=== PATIENT | male | born 1960 | race Two or more races ===

== ENCOUNTER 2016-07-02 10:43 | Emergency (ER) | payer MEDICAID ==
[~2016-07-02] VITALS: Wt 65.0 kg
[~2016-07-02 10:43] MED LIST: AZIT500T5 PO; IBUP-1542 PO
[2016-07-02] MEDS ORDERED: KETOROLAC 60 MG INJ IM STA (11:41)
--- NOTE | 2016-07-02 12:38 | RADRPT ---
PROCEDURE: XR Hand. CLINICAL INDICATION: injury with shoulder pain TECHNIQUE: AP oblique and lateral views of the right hand were obtained. COMPARISON: No prior studies are available for comparison. FINDINGS: There is normal mineralization. No acute fracture or dislocation is seen. There are no significant degenerative changes. There is no significant soft tissue swelling. IMPRESSION: No acute bony abnormality .Amrik Hawk MD, Date Time Electronically viewed and signed by .Amrik Hawk MD, on 07/02/2016 12:38 .Laly/
--- NOTE | 2016-07-02 12:39 | RADRPT ---
PROCEDURE: XR Elbow. CLINICAL INDICATION: FOOSH/shoulder pain TECHNIQUE: AP, lateral and oblique views of the right elbow performed. COMPARISON: None. FINDINGS: There is normal mineralization and alignment. No fracture or osseous lesion is identified. There are normal joints without evidence of arthritis or effusion. The soft tissues are unremarkable. IMPRESSION: Unremarkable examination. .Amrik Hawk MD, MD Date Time Electronically viewed and signed by .Amrik Hawk MD, on 07/02/2016 12:38 .Laly/
--- NOTE | 2016-07-02 12:40 | RADRPT ---
PROCEDURE: XR Wrist. CLINICAL INDICATION: Pain. TECHNIQUE: AP, lateral and oblique views of the right wrist were performed. COMPARISON: No prior studies are available for comparison. FINDINGS: No evidence of fracture, dislocation, or subluxation is seen. The bones appear well mineralized. The joint spaces are well preserved. The soft tissues appear intact. IMPRESSION: Unremarkable exam of the right wrist. RPTAT: QQ. .Amrik Hawk MD, MD Date Time Electronically viewed and signed by .Amrik Hawk MD, on 07/02/2016 12:40 .M/
--- NOTE | 2016-07-02 12:40 | RADRPT ---
PROCEDURE: Right shoulder series. CLINICAL INDICATION: Pain. TECHNIQUE: AP views of the shoulder were performed with internal and external rotation, as well as a transscapular Y view. COMPARISON: None. FINDINGS: No acute fracture or dislocation. The glenohumeral and acromioclavicular joint spaces are intact. N o findings of calcific tendonitis are present. IMPRESSION: Negative examination. RPTAT: QQ .Amrik Hawk MD, MD Date Time Electronically viewed and signed by .Amrik Hawk MD, on 07/02/2016 12:39 .M/
[2016-07-02] MEDS ORDERED: HYDR-906 PO (12:47)
--- NOTE | 2016-07-02 12:47 | ERD ---
ER Documentation Chief Complaint Date/Time DATE: 07/02/16 TIME: 12:46 Chief Complaint right hand pain from a fall yesterday no obvious deformty HPI This patient is a 56-year-old male with no significant medical history presenting to the emergency department for right hand, right wrist and right shoulder pain after fall on outstretched hand yesterday while he was leaving work. The patient reports 7 out of 10 on the pain scale and states it is constant. He has not been able to sleep secondary to pain. He has taken no medications at home for pain relief. Patient denies any head injury or loss of consciousness. There are no other symptoms to report at this time. ROS All systems reviewed and are negative except as per history of present illness. Medications Home Meds Active Scripts Naproxen* (Naprosyn*) 500 Mg Tablet, 500 MG PO BID Y for PAIN AND/OR INFLAMMATION, #30 TAB Prov:ALEJA TARIQ PA-C 07/02/16 Hydrocodone/Acetaminophen ([place] 5-325 Tablet) 1 Each Tablet, 1 TAB PO Q6H Y for PAIN, #7 TAB Prov:ALEJA TARIQ PA-C 07/02/16 Ibuprofen* (Motrin*) 600 Mg Tab, 600 MG PO Q8 for 10 Days, #30 TAB 0 Refills Prov:JESSICA MONET PA-C 04/29/16 Azithromycin* (Azithromycin*) 500 Mg Tablet, 500 MG PO DAILY for 5 Days, TAB Prov:MARYSE BRADFORD 03/04/16 Ibuprofen* (Ibuprofen*) 600 Mg Tablet, 600 MG PO Q8, #30 TAB Prov:MARYSE BRADFORD 03/04/16 Allergies Allergies: Coded Allergies: No Known Allergy (Unverified , 03/04/16) PMhx/Soc History of Surgery: No Anesthesia Reaction: No Hx Neurological Disorder: No Hx Respiratory Disorders: No Hx Cardiac Disorders: No Hx Psychiatric Problems: No Hx Miscellaneous Medical Probl: No Hx Alcohol Use: No Hx Substance Use: No Hx Tobacco Use: No FmHx Noncontributory for chief complain Physical Exam Vitals Vital Signs Date Time Temp Pulse Resp B/P Pulse Ox O2 Delivery O2 Flow Rate FiO2 07/02/16 10:56 98.4 74 20 18/64 99 Physical Exam INITIAL VITAL SIGNS: Reviewed by me. GENERAL: Alert and interactive. No acute distress. HEAD: Head is normocephalic and atraumatic. EYES: EOMI. No scleral icterus. No conjunctival injection. ENT: Moist mucosa. NECK: Supple. Full range of motion. RESPIRATORY: Normal respiratory effort. Clear breath sounds bilaterally. No wheezing, rales, or rhonchi. CV: Regular rate and rhythm. Normal S1 S2. No S3 or S4. No murmurs. ABDOMEN: Soft, non-distended, non-tender. No guarding. No rebound. No masses. EXTREMITIES: No deformity. There is mild soft tissue swelling to the right hand but no erythema or warmth. There is no lymphatic streaking. There is slight limited range of motion secondary to pain of the right wrist. SKIN: Warm and dry. NEUROLOGIC: Alert and oriented x 4. Speech is normal. Moves all extremities equally. No motor or sensory deficits noted. Results 24 hrs Current Medications Medications (Trade) Dose Ordered Sig/Clint Route PRN Reason Start Time Stop Time Status Last Admin Dose Admin Ketorolac Tromethamine (Toradol) 60 mg ONCE STAT IM 07/02/16 11:41 07/02/16 11:46 DC 07/02/16 12:42 Procedures/MDM 36-year-old male presents secondary to complaints of right hand and right wrist and right shoulder pain after fall on outstretched right hand yesterday. Radiology: PROCEDURE: XR Elbow. CLINICAL INDICATION: FOOSH/shoulder pain TECHNIQUE: AP, lateral and oblique views of the right elbow performed. COMPARISON: None. FINDINGS: There is normal mineralization and alignment. No fracture or osseous lesion is identified. There are normal joints without evidence of arthritis or effusion. The soft tissues are unremarkable. IMPRESSION: Unremarkable examination. PROCEDURE: XR Forearm. CLINICAL INDICATION: Pain TECHNIQUE: AP and lateral views of the right forearm were obtained. COMPARISON: No prior studies are available for comparison. FINDINGS: There is normal mineralization and alignment. There is a mild cortical irregularity along the distal radius which is not visualized on the wrist radiographs from earlier the same day. The remainder of the osseous structures demonstrate no fracture or dislocation. There are normal joints without evidence of arthritis or effusion. The soft tissues are unremarkable. IMPRESSION: Mild cortical irregularity along the distal radius which is not visualized on the wrist radiographs from earlier the same day. Findings may be retail account representative of a subtle nondisplaced fracture although no overlying soft tissue swelling is identified. Clinical correlation for point tenderness. Further imaging with CT may be of additional benefit if there is further clinical concern. PROCEDURE: XR Hand. CLINICAL INDICATION: injury with shoulder pain TECHNIQUE: AP oblique and lateral views of the right hand were obtained. COMPARISON: No prior studies are available for comparison. FINDINGS: There is normal mineralization. No acute fracture or dislocation is seen. There are no significant degenerative changes. There is no significant soft tissue swelling. IMPRESSION: No acute bony abnormality PROCEDURE: Right shoulder series. CLINICAL INDICATION: Pain. TECHNIQUE: AP views of the shoulder were performed with internal and external rotation, as well as a transscapular Y view. COMPARISON: None. FINDINGS: No acute fracture or dislocation. The glenohumeral and acromioclavicular joint spaces are intact. No findings of calcific tendonitis are present. IMPRESSION: Negative examination. PROCEDURE: XR Wrist. CLINICAL INDICATION: Pain. TECHNIQUE: AP, lateral and oblique views of the right wrist were performed. COMPARISON: No prior studies are available for comparison. FINDINGS: No evidence of fracture, dislocation, or subluxation is seen. The bones appear well mineralized. The joint spaces are well preserved. The soft tissues appear intact. IMPRESSION: Unremarkable exam of the right wrist. On closer review of the forearm x-ray there was an area that the radiologist stated as "a mild cortical irregularity along the distal radius which is not visualized on the wrist radiographs from earlier the same day." After reviewing this result I contacted the patient to alert him and advised him to come back to the department immediately to be put in a wrist splint. Patient agreed and stated he would do so on 07-03-2016. This information was relayed to the charge nurse who stated he would put this information in the patient's file so that he may return for wrist splint tomorrow. The patient was also given orthopedics follow-up information. The patient understood all the information given and his questions and concerns were addressed. Departure Diagnosis: Primary Impression: Injury of hand Condition: Stable Referrals: [facility] Additional Instructions: Follow-up with your primary care physician within 1 week. Return to the emergency department immediately should you have any new or worsening symptoms, uncontrolled fevers, or other unexplained symptoms. Take all medications as directed. ALEJA TARIQ PA-C Jul 02, 2016 12:47
[2016-07-02] MEDS ORDERED: NAPR-260 PO (12:48)
--- NOTE | 2016-07-02 12:48 | RADRPT ---
PROCEDURE: XR Forearm. CLINICAL INDICATION: Pain TECHNIQUE: AP and lateral views of the right forearm were obtained. COMPARISON: No prior studies are available for comparison. FINDINGS: There is normal mineralization and alignment. There is a mild cortical irregularity along the distal radius which is not visualized on the wrist radiographs from earlier the same day. The remainder o f the osseous structures demonstrate no fracture or dislocation. There are normal joints without tonia dence of arthritis or effusion. The soft tissues are unremarkable. IMPRESSION: Mild cortical irregularity along the distal radius which is not visualized on the wrist radiographs from earlier the same day. Findings may be sales service representative of a subtle nondisplaced fracture although no overlying soft tissue swelling is identified. Clinical correlation for point tenderness. Furthe r imaging with CT may be of additional benefit if there is further clinical concern. RPTAT: QQ .Amrik Hawk MD, Date Time Electronically viewed and signed by .Amrik Hawk MD, MD on 07/02/2016 12:47 .M/
== END 2016-07-02 13:23 | disposition home or self-care (01) ==
LOC: FTE 10:43
DX: S69.91XA Unspecified injury of right wrist, hand and finger(s), initial encounter (principal); W18.39XA Other fall on same level, initial encounter; Y92.89 Other specified places as the place of occurrence of the external cause
CPT/HCPCS: 73030; 73080; 73090; 73110; 73130; 96372; J1885; Z7502

== ENCOUNTER 2016-07-03 11:10 | Emergency (ER) | payer MEDICAID ==
[~2016-07-03] VITALS: Ht 165.1 cm; Wt 64.5 kg
[~2016-07-03 11:10] MED LIST changes: +HYDR-906 PO; +NAPR-260 PO
[2016-07-03 11:45] VITALS: Ht 165.1 cm; Wt 64.5 kg
--- NOTE | 2016-07-03 13:36 | ERD ---
ER Documentation Chief Complaint Date/Time DATE: 07/03/16 TIME: 13:25 Chief Complaint RIGHT HAND PAIN 12/11.Pt WAS CALLED TO COME BACK FOR FRACTURED HAND HPI 56 y/o male presents to ED for "I was called by one of the emergency room providers yesterday to come today for a splint placement to my right wrist fracture." Was here yesterday for a right upper extremity injury and diagnostic imagings was done. Denies headache, loss of consciousness, dizziness, blurry vision, changes in vision, photophobia, facial pain, ear pain, throat pain, difficulty swallowing, neck pain, shoulder pain, chest pain, cough, hemoptysis, abdominal pain, back pain, loss of appetite, nausea, vomiting, hematochezia, diarrhea, constipation, urinary symptoms, bladder and bowel incontinences, extremity weakness, numbness or tingling sensation, difficulty walking, recent travel, recent exposure to illness, recent antibiotic use in the last 3 months, fever, chills. Allergy: NKA PMH: Denies Medications: Denies Surgery: Denies Family history: Denies Primary Social History: Works at [employer]. Denies smoking, use of alcohol, use of illegal drugs. ROS All systems reviewed and are negative except as per history of present illness. Medications Home Meds Active Scripts Naproxen* (Naprosyn*) 500 Mg Tablet, 500 MG PO BID Y for PAIN AND/OR INFLAMMATION, #30 TAB Prov:ALEJA TARIQ PA-C 07/02/16 Hydrocodone/Acetaminophen ([place] 5-325 Tablet) 1 Each Tablet, 1 TAB PO Q6H Y for PAIN, #7 TAB Prov:ALEJA TARIQ PA-C 07/02/16 Ibuprofen* (Motrin*) 600 Mg Tab, 600 MG PO Q8 for 10 Days, #30 TAB 0 Refills Prov:JESSICA MONET PA-C 04/29/16 Azithromycin* (Azithromycin*) 500 Mg Tablet, 500 MG PO DAILY for 5 Days, TAB Prov:MARYSE BRADFORD 03/04/16 Ibuprofen* (Ibuprofen*) 600 Mg Tablet, 600 MG PO Q8, #30 TAB Prov:MARYSE BRADFORD 03/04/16 Allergies Allergies: Coded Allergies: No Known Allergy (Unverified , 03/04/16) PMhx/Soc History of Surgery: No Anesthesia Reaction: No Hx Neurological Disorder: No Hx Respiratory Disorders: No Hx Cardiac Disorders: No Hx Psychiatric Problems: No Hx Miscellaneous Medical Probl: No Hx Alcohol Use: No Hx Substance Use: No Hx Tobacco Use: No Physical Exam Vitals Vital Signs Date Time Temp Pulse Resp B/P Pulse Ox O2 Delivery O2 Flow Rate FiO2 07/03/16 15:04 98.5 80 18 110/63 98 Room Air 07/03/16 11:45 98.5 78 18 116/63 98 Physical Exam CONSTITUTIONAL: Well-appearing; well-nourished; in no apparent distress. HEAD: Normocephalic; atraumatic. EYES: Conjunctiva clear, sclera non-icteric, EOM intact. PERRL Ears: Hearing intact. EACs clear, TMs non-bulging, non-inflamed, translucent & mobile, ossicles normal appearance, No obstructions, no erythema, no discharges Nose: No obstructions. No polyps. No external lesions. Mucosa non-inflamed. No external lesions, septum and turbinates normal. No rhinorrhea. No discharges. Frontal sinus is non-tender to palpation. Maxillary sinus is non-tender to palpation. MOUTH: Moist mucous membranes, no lesion, no obstructions, no vesicles, no thrush, patent airway Throat: Uvula in midline. Right tonsil is +1 with no erythema, no exudate. Left tonsil is +1 with no erythema, no exudate. Tolerating secretions well. Good gag reflex. Patent airway. Neck: Supple, without lesions, bruits, or adenopathy. No mass. Thyroid non- enlarged and non-tender to palpation. CHEST: Symmetrical chest. Respirations even and not labored. No retractions noted. CARDIOVASCULAR: Normal S1, S2. RRR. No murmurs, gallops. RESPIRATORY: Normal chest excursion with respiration; breath sounds clear and equal bilaterally; no wheezes, rhonchi, or rales. Breathing even and unlabored. Speaking in clear, full, and complete sentences w/ ease. ABDOMEN: Normal bowel sounds normal. Soft, round, non-distended, non-guarding, no tenderness, no rebound, no organomegaly, no masses, no pulsating abdominal mass. No hernia. No peritoneal signs. : No CVA tenderness. BACK: Symmetrical shoulder. Spine is midline without deformity, tenderness. No evidence of trauma or deformity. PELVIS: Stable pelvis. No evidence of trauma or deformity. MUSCULOSKELETAL: Normal gait and station. No misalignment, asymmetry, crepitation, defects, tenderness, masses, effusions, decreased range of motion, instability, atrophy or abnormal strength or tone in the head, neck, spine, ribs , pelvis or extremities. No calf tenderness. Right arm/hand: Mild tenderness with mild limited range of motion to right wrist. Has good radial pulse. Has good and full function of right metacarpals, proximal/distal interphalangeal joints with full flexion/extension (5/5 in score ). Circulation and sensation is intact. No neurovascular deficits. Right elbow is unremarkable. Right shoulder is unremarkable. NEUROVASCULAR: Distal pulses are present. Pedal pulse are present, equal, and normal. Capillary refills are < 2 seconds. NEUROLOGIC: Alert and oriented x4. Speaks full and clear sentences. Cranial Nerves II-XII normal. Sensation to pain, touch, and proprioception normal. Grossly unremarkable. No neurologic deficits. Romberg test is negative. PSYCHOLOGICAL: The patients mood and manner are appropriate. No hallucinations , delusions. Not SI. Not HI. Has the capacity to decide for self SKIN: Normal for age and ethnicity; warm; dry; good turgor; no apparent lesions or exudates. No rashes, hives, discoloration. Intact. Procedures/MDM Examination. Disease process, medical treatment was explained to the patient and family member. They verbalized understanding and agreed with the diagnostic tests, medical treatment, and follow-up care. Radiology: Reviewed Treatment: Volar splint. No neurovascular deficits prior to and after the application of splint. Re-evaluation: No neurovascular deficits. Consultation: None Differential diagnosis: Fracture versus contusion versus sprain. Medical decision makin56 y/o male presents to ED for "I was called by one of the emergency room providers yesterday to come today for a splint placement to my right wrist fracture." Was here yesterday for a right upper extremity injury and diagnostic imagings was done. Patient's complaint, my physical findings, diagnostic test results are consistent with my final diagnosis of non- displaced fracture of right distal radius. Medications prescribed are the following: Continue her prescribed medications yesterday. Patient and family member are made aware of the side effects and adverse reactions of the medications prescribed. Instructed on when to seek emergent and medical attention in case allergic/anaphylactic reactions or severe side effects and or adverse reactions to medications. Patient and family member verbalized understanding. Patient instructed Instructed to follow-up with his PCP in 24-48 hours. PCP to refer patient to an revenue cycle specialist (Dr. Cruz). Contact information of specialist was given to patient. Instructed to Call 911 for chest pain, shortness of breath. Advised to come back here in ED as soon as possible for severity of symptoms which includes but not limited to: any new symptoms; shortness of breath/difficulty of breathing; cardiovascular changes; severe gastrointestinal symptoms; signs and symptoms of bleeding and or infection; signs of compartment syndrome/neurovascular changes; neurological changes/deficits. Patient and family member verbalized understanding. Upon discharge, patient is alert and oriented x 4, speaks full and clear sentences, denies pain, has no neurological deficits, has no neurovascular deficits, difficulty of breathing. Breathing even and unlabored. Lung sounds are clear to auscultation. Not in distress. Appears comfortable. Ambulatory with steady gait. Appears satisfied with care provided here in ED. Departure Diagnosis: Primary Impression: Fracture Condition: Good Additional Instructions: Follow-up with PCP in 24-48 hours. PCP to refer patient to an revenue cycle specialist. ADELA DELEON Jul 03, 2016 13:36
[2016-07-03 15:04] VITALS: BP 110/63; PULSE 80; RESP 18; TEMP 98.5
== END 2016-07-03 15:05 | disposition home or self-care (01) ==
LOC: FTE 11:10
DX: S52.591D Other fractures of lower end of right radius, subsequent encounter for closed fracture with routine healing (principal); X58.XXXD Exposure to other specified factors, subsequent encounter

== ENCOUNTER 2016-10-30 09:59 | Emergency (ER) | payer MEDICAID ==
[~2016-10-30] VITALS: Ht 152.4 cm; Wt 62.5 kg
[2016-10-30 10:02] VITALS: Ht 152.4 cm; Wt 62.5 kg
[2016-10-30] MEDS ORDERED: KETOROLAC 30 MG INJ IM STA (10:21)
--- NOTE | 2016-10-30 10:55 | RADRPT ---
PROCEDURE: XR right shoulder. CLINICAL INDICATION: Pain TECHNIQUE: AP and lateral views of the right shoulder were performed. COMPARISON: 07/02/2016 FINDINGS: There are mild degenerative changes involving the acromioclavicular joint with mild joint space narr owing and subchondral sclerosis. There is normal osseous mineralization and alignment. No fracture or osseous lesion is identified. The soft tissues are unremarkable. IMPRESSION: Mild degenerative changes of the acromioclavicular joint. RPTAT: AA .Isabella Myers MD, MD Date Time Electronically viewed and signed by .Isabella Myers MD, on 10/30/2016 10:54 .J/
--- NOTE | 2016-10-30 11:07 | ERD ---
ER Documentation Chief Complaint Date/Time DATE: 10/30/16 Chief Complaint Right shoulder pain HPI The patient is a 56-year-old male who presents to the Emergency Department with complaint of right shoulder pain for the past week. The patient reports that approximately one week ago, while walking on the street, he had a mechanical trip and fall and fell directly onto his outstretched right upper extremity. Since, he has been experiencing pain to the right shoulder joint. The pain is worse with movement, particularly overhead activities, and mildly improved at rest. It is aching in nature, and constant, localized to the right shoulder joint and deltoid region. He rates his current pain as 10/10, but has not yet taken any medication today for pain relief. He denies any numbness, paresthesias or weakness of the distal extremity. Denies restricted range of motion. Since the fall, he has not yet followed up with her primary medical provider, and find any x-ray imaging performed. Therefore, even persistent pain he decided to present to the Emergency Department for further evaluation. ROS All systems reviewed and are negative except as per history of present illness. Medications Home Meds Active Scripts Naproxen* (Naprosyn*) 500 Mg Tablet, 500 MG PO BID Y for PAIN AND/OR INFLAMMATION, #30 TAB Prov:NANI PENA PA-C 10/30/16 Naproxen* (Naprosyn*) 500 Mg Tablet, 500 MG PO BID Y for PAIN AND/OR INFLAMMATION, #30 TAB Prov:ALEJA TARIQ PA-C 07/02/16 Hydrocodone/Acetaminophen ([place] 5-325 Tablet) 1 Each Tablet, 1 TAB PO Q6H Y for PAIN, #7 TAB Prov:ALEJA TARIQ PA-C 07/02/16 Ibuprofen* (Motrin*) 600 Mg Tab, 600 MG PO Q8 for 10 Days, #30 TAB 0 Refills Prov:JESSICA MONET PA-C 04/29/16 Azithromycin* (Azithromycin*) 500 Mg Tablet, 500 MG PO DAILY for 5 Days, TAB Prov:MARYSE BRADFORD 03/04/16 Ibuprofen* (Ibuprofen*) 600 Mg Tablet, 600 MG PO Q8, #30 TAB Prov:MARYSE BRADFORD 03/04/16 Allergies Allergies: Coded Allergies: No Known Allergy (Unverified , 03/04/16) PMhx/Soc History of Surgery: No Anesthesia Reaction: No Hx Neurological Disorder: No Hx Respiratory Disorders: No Hx Cardiac Disorders: No Hx Psychiatric Problems: No Hx Miscellaneous Medical Probl: No Hx Alcohol Use: No Hx Substance Use: No Hx Tobacco Use: No Physical Exam Vitals Vital Signs Date Time Temp Pulse Resp B/P Pulse Ox O2 Delivery O2 Flow Rate FiO2 10/30/16 10:02 98.3 76 20 99/54 99 Physical Exam Const: Well-developed, well-nourished, in no acute distress. Head: Normocephalic. Atraumatic. Eyes: Normal Conjunctiva. ENT: Normal External Ears, Nose and Mouth. Neck: Supple. Full range of motion. Resp: Clear to auscultation bilaterally Cardio: Regular rate and rhythm, no murmurs Skin: No petechiae or rashes Back: No midline or flank tenderness Ext: Inspection of the right shoulder reveals no deformity and fairly developed musculature without any atrophy. No sagging of the shoulder. No obvious deformity. Palpation of the shoulder reveals mild tenderness upon palpation of the bicipital groove. Active range of motion shows moderate pain with range of motion that appears to be worse with extension and internal rotation against resistance. Passive range of motion shows mild pain. Positive Neer sign. Positive Anaya-Foster test. Negative drop arm test. Negative lift off test. Examination of the biceps reveals no pain with resisted flexion or pronation. Negative Yergason sign. Negative anterior apprehension test. Negative sulcus sign. Axillary, radial, median and ulnar nerve distribution grossly intact, both motor and sensory. Normal skin perfusion. Other joints nontender. No joint effusion. Full range of motion of the upper and lower extremities. Muscle tone is normal. No focal swelling or erythema. No clubbing, cyanosis or edema. Compartments are soft. No ecchymosis. No crepitus. No step offs. Normal strength. Distal pulses are palpable, 2+ bilaterally. Capillary refill is less than 2 seconds. Neur: Awake and alert Psych: Normal Mood and Affect Results 24 hrs Current Medications Medications (Trade) Dose Ordered Sig/Clint Route PRN Reason Start Time Stop Time Status Last Admin Dose Admin Ketorolac Tromethamine (Toradol) 30 mg ONCE STAT IM 10/30/16 10:21 10/30/16 10:22 DC 10/30/16 10:29 Procedures/MDM DIAGNOSTIC TESTS AND INTERPRETATION: PROCEDURE: XR right shoulder. CLINICAL INDICATION: Pain TECHNIQUE: AP and lateral views of the right shoulder were performed. COMPARISON: 07/02/2016 FINDINGS: There are mild degenerative changes involving the acromioclavicular joint with mild joint space narrowing and subchondral sclerosis. There is normal osseous mineralization and alignment. No fracture or osseous lesion is identified. The soft tissues are unremarkable. IMPRESSION:Mild degenerative changes of the acromioclavicular joint. .Isabella Myers MD, MD Date Time Electronically viewed and signed by .Isabella Myers MD, on 10/30/2016 10:54 SLING APPLICATION: INDICATION: Internal derangement of the right shoulder. LOCATION: Right upper extremity. NEUROVASCULAR EXAM: The patients extremity was neurovascularly intact prior to and status post sling placement. MEDICAL DECISION MAKING: This is a 56-year-old male presenting to the Emergency Department with right shoulder pain s/p mechanical fall onto outstretched right upper extremity one week ago. His vital signs were stable, and he showed no evidence of toxicity. There are no imaging findings to suggest fracture, dislocation or subluxation. Patient is breathing normally on room air with no shortness of breath, no tachypnea and a normal O2 saturation. I do not suspect pneumothorax. No pain out of proportion to examination, no fevers, no constitutional symptoms, no crepitus, no skip lesions or rash, no erythema or restricted range of motion to suggest necrotizing fasciitis, necrotizing myositis, avascular necrosis, septic arthritis. Range of motion appears to be intact, though with positive Neers and Anaya-Foster test. Negative drop arm test. Suspect rotator cuff impingement, likely internal derangement of the right shoulder. Patient will likely benefit from outpatient MRI imaging. Distal extremity is neurovascularly intact, with 2+ pulses that are equal bilaterally and capillary refill less than 2 seconds. No evidence of neurovascular compromise. After rest and administration of Toradol, the patient reports no new complaints and decreased pain. Upon my review and interpretation of the patient's presentation and overall ER course, I believe that the patient's symptoms are most consistent with right shoulder pain, likely secondary to internal derangement of the right shoulder/ right shoulder impingement syndrome. The patient is in stable condition and therefore can be discharged home with prescription for Ibuprofen and given strict return precautions for signs of deteriorating or worsening condition. The importance of icing, elevating, resting and working on range of motion was discussed with the patient. The patient is instructed to follow up with a primary care provider and/or orthopedic physician assistant within 2-3 days for re- evaluation and further management or return to the ER sooner for any worsening symptoms. I shared my medical decision making, plan and diagnostic imaging results with the patient and he verbally understands and agrees with the plan for further observation and care as an outpatient. At the time of discharge, all questions were answered. Departure Diagnosis: Primary Impression: Impingement syndrome of right shoulder Additional Impressions: Internal derangement of right shoulder Right shoulder pain Chronicity: acute Qualified Code: M25.511 - Acute pain of right shoulder Condition: Stable Patient Instructions: Shoulder Impingement Syndrome, Shoulder Pain (Uncertain Cause), What Is Impingement Syndrome? Referrals: [facility] Additional Instructions: Call your primary care doctor TOMORROW for an appointment during the next 2-3 days.See the doctor sooner or return here if your condition worsens before your appointment time. NANI PENA PA-C October 30, 2016 11:07
[2016-10-30] MEDS ORDERED: NAPR-260 PO (11:08)
== END 2016-10-30 11:32 | disposition home or self-care (01) ==
LOC: FTE 09:59
DX: M75.41 Impingement syndrome of right shoulder (principal); M24.111 Other articular cartilage disorders, right shoulder
CPT/HCPCS: 73030; 96372; J1885; Z7502

== ENCOUNTER 2017-02-03 11:44 | Emergency (ER) | payer SELFPAY ==
[~2017-02-03] VITALS: Ht 157.5 cm; Wt 62.5 kg
[2017-02-03 12:19] VITALS: Ht 157.5 cm; Wt 62.5 kg
[2017-02-03] MEDS ORDERED: KETOROLAC 60 MG INJ IM STA (13:44)
--- NOTE | 2017-02-03 15:02 | RADRPT ---
PROCEDURE: XR Femur. CLINICAL INDICATION: Right lower extremity pain TECHNIQUE: AP and lateral views of the right femur were obtained. COMPARISON: No prior studies are available for comparison. FINDINGS: There is normal mineralization and alignment. No fracture or osseous lesion is identified. There are normal joints without evidence of arthritis or effusion. The soft tissues are unremarkable. IMPRESSION: 1. No acute osseous abnormality. RPTAT: QQ .Evaristo Gomez MD, MD Date Time Electronically viewed and signed by .Evaristo Gomez MD, on 02/03/2017 15:02 .d/
--- NOTE | 2017-02-03 15:03 | RADRPT ---
PROCEDURE: XR Ankle. CLINICAL INDICATION: Lower extremity pain TECHNIQUE: Three views of the right ankle are available for review COMPARISON: None available FINDINGS: The osseous structures, articular spaces, and surrounding soft tissues of the right ankle are intact . No acute fracture or dislocation is seen. No radiopaque foreign body is identified. IMPRESSION: 1. No acute osseous abnormality. RPTAT: QQ .Evaristo Gomez MD, MD Date Time Electronically viewed and signed by .Evaristo Gomez MD, on 02/03/2017 15:03 .d/
--- NOTE | 2017-02-03 15:03 | RADRPT ---
PROCEDURE: US DVT. CLINICAL INDICATION: Right lower extremity pain and swelling. TECHNIQUE: Multiple longitudinal and transverse images of the right lower extremity veins were obt ained with kline scale and color Doppler imaging. 2D grayscale measurements with compression, color Doppler flow, and augmentation was performed. The calf veins were interrogated as well. COMPARISON: No prior studies are available for comparison. FINDINGS: The right common femoral, superficial femoral and popliteal veins are normally compressible througho ut. Color flow demonstrates normal filling of the vessel. Normal waveforms are visualized and ther e is normal response to augmentation. The calf veins are visualized and are equally unremarkable. IMPRESSION: 1. No evidence of a deep vein thrombosis involving the right lower extremity. RPTAT: QQ .Evaristo Gomez MD, MD Date Time Electronically viewed and signed by .Evaristo Gomez MD, MD on 02/03/2017 15:03 .d/
--- NOTE | 2017-02-03 15:05 | RADRPT ---
PROCEDURE: XR Knee. CLINICAL INDICATION: Knee pain TECHNIQUE: Three views of the right knee are available for review. COMPARISON: None available FINDINGS: The medial and lateral femorotibial compartments are preserved, as is the patellofemoral compartment . There is no acute osseous abnormality, marginal erosion or evidence of fracture. There are well-co rticated fragment at the lateral margin of the tibia, likely sequelae of remote injury. A race join t effusion is seen. IMPRESSION: 1. No acute osseous abnormality. 2. Trace joint effusion. RPTAT: QQ .Evaristo Gomez MD, MD Date Time Electronically viewed and signed by .Evaristo Gomez MD, MD on 02/03/2017 15:04 .d/
[2017-02-03] MEDS ORDERED: IBUP-1542 PO (15:16)
[2017-02-03 15:26] VITALS: BP 128/76; PULSE 76; RESP 19; TEMP 98.2
--- NOTE | 2017-02-03 15:29 | ERD ---
ER Documentation Chief Complaint Date/Time DATE: 02/03/17 TIME: 15:21 Chief Complaint BILAT LEG PAIN X 4 DAYS. AMBULATES WITH MINIMAL DIFFICULTY. NO TRAUMA HPI This is a 56-year-old male presents to the ER with right knee pain that radiates behind his knee and up his femur. Patient also complaining of right ankle pain. He is additionally complaining of right-sided back pain. Patient denies any trauma to the back or leg. He states that his pain is sharp and intermittent. Patient took Tylenol and it helped him. He also got a massage from his daughter and this helped him too. Patient has not had any fevers or chills. He is also complaining of generalized headache and watery eyes. Patient states that his left leg hurts as well, however the right is worse. ROS 12 point review of systems was done, all negative except per HPI. Medications Home Meds Active Scripts Ibuprofen* (Motrin*) 600 Mg Tab, 600 MG PO Q6, #30 TAB Prov:JODY FRANCO 02/03/17 Naproxen* (Naprosyn*) 500 Mg Tablet, 500 MG PO BID Y for PAIN AND/OR INFLAMMATION, #30 TAB Prov:NANI PENA PA-C 10/30/16 Naproxen* (Naprosyn*) 500 Mg Tablet, 500 MG PO BID Y for PAIN AND/OR INFLAMMATION, #30 TAB Prov:ALEJA TARIQ PA-C 07/02/16 Hydrocodone/Acetaminophen ([place] 5-325 Tablet) 1 Each Tablet, 1 TAB PO Q6H Y for PAIN, #7 TAB Prov:ALEJA TARIQ PA-C 07/02/16 Ibuprofen* (Motrin*) 600 Mg Tab, 600 MG PO Q8 for 10 Days, #30 TAB 0 Refills Prov:JESSICA MONET PA-C 04/29/16 Azithromycin* (Azithromycin*) 500 Mg Tablet, 500 MG PO DAILY for 5 Days, TAB Prov:MARYSE BRADFORD 03/04/16 Ibuprofen* (Ibuprofen*) 600 Mg Tablet, 600 MG PO Q8, #30 TAB Prov:MARYSE BRADFORD 03/04/16 Allergies Allergies: Coded Allergies: No Known Allergy (Unverified , 02/03/17) PMhx/Soc History of Surgery: No Anesthesia Reaction: No Hx Neurological Disorder: No Hx Respiratory Disorders: No Hx Cardiac Disorders: No Hx Psychiatric Problems: No Hx Miscellaneous Medical Probl: No Hx Alcohol Use: No Hx Substance Use: No Hx Tobacco Use: No Smoking Status: Never smoker Physical Exam Vitals Vital Signs Date Time Temp Pulse Resp B/P Pulse Ox O2 Delivery O2 Flow Rate FiO2 02/03/17 12:19 98.4 72 19 123/70 100 Physical Exam GENERAL: The patient is well developed and appropriate for usual state of health , in no apparent distress. HEENT: Atraumatic. Conjunctivae are pink. Pupils equal, round, and reactive to light. Extraocular muscles are grossly intact and not painful CHEST: Clear to auscultation bilaterally. There are no rales, wheezes or rhonchi. HEART: Regular rate and rhythm. No murmurs, clicks, rubs or gallops. ABDOMEN: Soft, nontender and nondistended. BACK: No midline or flank tenderness. Patient is tender to palpation to the right paraspinal muscles. EXTREMITIES: Right hip: Patient has full and nonpainful range of motion of the right hip and is not tender to palpation. Patient is tender along the femur. Right knee: Patient has painful knee extension and flexion there is a slight joint effusion. Negative anterior drawer negative posterior drawer negative Aldo test. There is no erythema or warmth to the knee. Patient is nontender to palpation along the tibia or fibula. He has painful ankle range of motion. He is not tender to palpation to the lateral or medial malleolus. No foot pain. Left hip: Tender to palpation, he is nontender to palpation along femur. Left knee: Patient has full and nonpainful range of motion of the left knee and there is no tenderness to palpation. He does have any tenderness to palpation to the left tibia-fibula and has full range of motion of the left ankle with no pain. +2 pulses bilaterally normal capillary refill bilaterally. NEURO: Alert and oriented. Cranial nerves II through XII are intact. Motor strength in all 4 extremities with 5/5 strength. Sensation grossly intact. Normal speech and gait. SKIN: There is no apparent rash or petechia. The skin is warm and dry. Results 24 hrs Current Medications Medications (Trade) Dose Ordered Sig/Clint Route PRN Reason Start Time Stop Time Status Last Admin Dose Admin Ketorolac Tromethamine (Toradol) 60 mg ONCE STAT IM 02/03/17 13:44 02/03/17 13:46 DC 02/03/17 13:55 Procedures/MDM This is a 56-year-old male presents to the ER with multiple complaints. Differential diagnosis includes but is not limited to viral illness, knee contusion or sprain, ligament injury, patellar dislocation, joint dislocation, patellar tibial plateau fracture, Stephens's cyst, DVT, osteomyelitis, acute compartment syndrome, rhabdo, myositis, septic joint, septic arthritis. Patient did have a small joint effusion to the right knee, there was no other abnormalities on imaging. Patient is afebrile and extremely well-appearing suspicion for infectious etiology such as septic joint or osteomyelitis is low. His pain was controlled in the ER with Toradol. Lower back and right extremity was not x-rayed as he is not tender to palpation to vertebral lumbar spine or to the left hip near ankle. Patient is able to ambulate in the ER without any problems. He is to follow-up with his primary care doctor within 1- 2 days return to ER sooner if symptoms worsen. My medical decision making shared with the patient and agrees with plan. Departure Diagnosis: Primary Impression: Knee pain Condition: Stable Patient Instructions: Knee Pain, Uncertain Cause Additional Instructions: Call your primary care doctor TOMORROW for an appointment during the next 1-2 days.See the doctor sooner or return here if your condition worsens before your appointment time. JODY FRANCO Feb 03, 2017 15:29
== END 2017-02-03 15:26 | disposition home or self-care (01) ==
LOC: FTE 11:44
DX: M25.561 Pain in right knee (principal)
CPT/HCPCS: 73550; 73562; 73610; 93971; 96372; 99285; J1885

== ENCOUNTER 2017-08-29 07:45 | Emergency (ER) | END 2017-08-29 09:49 | disposition home or self-care (01) ==

== ENCOUNTER 2017-10-01 10:28 | Emergency (ER) | END 2017-10-01 12:22 | disposition home or self-care (01) ==